=== PATIENT | male | born 1960 | race Caucasian/White ===

== ENCOUNTER 2022-05-15 11:06 | Emergency (ER) | payer OTHER ==
[2022-05-15] MEDS ORDERED: Sodium Chloride 0.9% 10 ML Syringe FLUSH PRN (11:37)
[2022-05-15 12:21] LABS: ESTIMATED GFR 77 mL/min (>60)
== END 2022-05-15 13:22 | disposition home or self-care (01) ==
LOC: JD.ED 11:06
DX: R06.02 Shortness of breath (principal); Z86.16 Personal history of COVID-19; Z87.891 Personal history of nicotine dependence
CPT/HCPCS: 36415; 71045; 71045-26; 80053; 83735; 85025; 85379; 86140; 99283; 99284

== ENCOUNTER 2024-03-18 09:34 | Day surgery (SDC) | payer OTHER ==
[2024-03-18] MEDS ORDERED: Propofol 200 MG/20 ML SDV ONE ×2 (10:33)
[2024-03-18] MEDS ORDERED: Lidocaine 1% 2 ML ONE (10:33)
[2024-03-18] MEDS ORDERED: Ondansetron 4 MG/2 ML SDV IVPUSH PRN (10:33)
[2024-03-18] MEDS ORDERED: Midazolam 1 MG/ML 2 ML SDV ONE (10:33)
[2024-03-18] MEDS ORDERED: Sodium Chloride 0.9% 10 ML Syringe FLUSH PRN (10:47)
[2024-03-18] MEDS ORDERED: Lactated Ringers 1,000 ML IV SCH (11:00)
[2024-03-18] MEDS ORDERED: Sodium Chloride 0.9% 10 ML Syringe FLUSH SCH (21:00)
== END 2024-03-18 12:07 | disposition home or self-care (01) ==
LOC: JD.SDS 09:34
PROVIDERS: ATTEND Surgery
DX: Z12.11 Encounter for screening for malignant neoplasm of colon (principal); E78.00 Pure hypercholesterolemia, unspecified; K40.90 Unilateral inguinal hernia, without obstruction or gangrene, not specified as recurrent; Z87.891 Personal history of nicotine dependence; Z79.82 Long term (current) use of aspirin; Z79.899 Other long term (current) drug therapy
CPT/HCPCS: 45378; J2250; J2704; J3490; J7120